=== PATIENT | male | born 1980 | race Caucasian/White ===

== ENCOUNTER → 2023-03-08 11:58 | Outpatient (CLI) | payer OTHER, SELFPAY ==
--- NOTE | 2023-03-08 12:01 | DI.RAD.S_ITS ---
PROCEDURE: XR FOOT RT MIN 3V INDICATIONS: Right foot pain TECHNIQUE: 3 views of the foot were acquired. COMPARISON: None. FINDINGS: Bones: No fractures or dislocations. No suspicious bony lesions. Soft tissues: No tibiotalar joint effusion. Achilles tendon appears normal. IMPRESSION: No visualized acute fracture or dislocation. However, if clinical concern and/or pain persist, short interval imaging followup in 7-10 days is recommended, as occult injury cannot be definitively excluded. Dictated by: Sunshine Cisneros M.D. on 03/08/2023 at 13:03 Approved by: Sunshine Cisneros M.D. on 03/08/2023 at 13:03
== END ==
PROVIDERS: Referring Provider Registered Nurse; Visit Provider Registered Nurse
DX: M79.671 Pain in right foot (principal)
CPT/HCPCS: 73630